=== PATIENT | female | born 2000 | race Caucasian/White ===

== ENCOUNTER 2023-04-06 16:25 | Emergency (ER) | payer MEDICAID, SELFPAY ==
[2023-04-06 16:29] VITALS: PULSE 98; RESP 18; TEMP 36.9; O2SAT 100; BMI 35.5
--- NOTE | 2023-04-06 16:56 | ED.GENADUL1 ---
HPI - General Adult General Chief complaint: Dizziness Stated complaint: HEAD PRESSURE, DIZZINESS Time Seen by Provider: 04/06/23 16:38 Source: patient Mode of arrival: walk-in Limitations: no limitations History of Present Illness HPI narrative: this patient's here complaining of dizziness and nausea today. She also has headache. She suffers from migraines for a long time but should this headache feels different. It was not abrupt in onset. Symptoms began yesterday. She felt fine until she went and took a shower after she was showering she wanted to bend over and shave her legs. When she shaved her legs and then stood up she had an abrupt onset of dizziness. She describes that sensation as feeling like everything was spinning and whirling around. Thereafter the headache slowly started just as gotten worse. She is supposed to work today but can't go to work feeling like this. She drove herself to the hospital. She says she does not have friends neighbors or family members that can drive her home. She lives in [place]. She is on the medications as listed. She's not had any head trauma or injury. She's not had a fever or influenza/viral type symptoms. She says the dizziness is present with both upright and supine positions. She does not have diplopia or dysarthria or dysphagia. No focal motor deficits or weakness or symptomatology in the trunk torso or the extremities. Vital signs are noted here and essentially normal. She was talking on the phone when I entered the room. Related Data Allergies Allergy/AdvReac Type Severity Reaction Status Date / Time No Known Drug Allergies Allergy Verified 04/06/23 16:29 Exam Narrative Exam Narrative: awake alert oriented ?3 cognition mentation and orientation are completely normal. GCS fifteen. In the sitting position neurological examination was conducted. Rapid alternating movements are normal. Finger to nose is normal. Gross motor function is normal. Cranial nerves II-12 are normal. She has no visual field loss. She does have horizontal nystagmus with lateral gaze. Funduscopic examination both eyes shows cup-to-disc and AV ratio normal with no hemorrhages and no papilledema. Neck is soft and supple with no nuchal rigidity. Cerebellar function testing is completely normal.she moves about on the cart with no motor abnormalities. Constitutional Vital Signs, click to edit/add: Last Vital Signs Temp 98.5 F 04/06/23 16:29 Pulse 98 H 04/06/23 16:29 Resp 18 04/06/23 16:29 Pulse Ox 100 04/06/23 16:29 O2 Del Method Room Air 04/06/23 16:29 Course Vital Signs Vital signs: Vital Signs Temperature 98.5 F 04/06/23 16:29 Pulse Rate 98 H 04/06/23 16:29 Respiratory Rate 18 04/06/23 16:29 Pulse Oximetry 100 04/06/23 16:29 Oxygen Delivery Method Room Air 04/06/23 16:29 Temperature 98.5 F 04/06/23 16:29 Pulse Rate 98 H 04/06/23 16:29 Respiratory Rate 18 04/06/23 16:29 Pulse Oximetry 100 04/06/23 16:29 Oxygen Delivery Method Room Air 04/06/23 16:29 Medical Decision Making MDM Narrative Medical decision making narrative: this patient presents with classic onset of vestibular dysfunction and vertigo. She drove herself the hospital and says there is nobody to drive back to [place]. This really will compromise my ability to successfully treat, but there is no real other options. I will use nonnarcotics for her headache type symptoms and then place her on Antivert . Because she has no one here with her, has no local doctor, and lives by herself I want to get his noncontrast CT scan to be sure there is nothing acute. In fact that study was done and appears to be negative per my review. Discharge Plan Discharge Chief Complaint: Dizziness Clinical Impression: Vertigo Patient Disposition: Home, Self-Care Time of Disposition Decision: 17:44 Additional Instructions: Antivert/off work today and tomorrow Toradol for headache [facility] [place] primary care doctor symptoms don't improve in several days Stand Alone Forms: Portal Instructions Referrals: Yair Agee MD [Primary Care Provider] - 1 week
--- NOTE | 2023-04-06 17:03 | CT_ITS ---
The [address] [address] Patient Name: DELMAR SUTTON MRN: [id number] date: 2000 Sex: F Assigned Patient Location: ER Current Patient Location: .[facility] Accession/Order Number: [id number] Exam Date: 04/06/2023 17:27 Report Date: 04/06/2023 17:51 At the request of: TONNY ARROYO Procedure: CT head/brain wo con CT head/brain wo con, 04/06/2023 5:27 PM EST INDICATION: headache/vertigo COMPARISON: There is no appropriate prior study for comparison. TECHNIQUE: Axial CT images of the brain from skull base to vertex, including portions of the face and sinuses, were obtained without contrast . Multiplanar reformatted images were generated and reviewed as needed. Dose reduction techniques were achieved by using automated exposure control and/or adjustment of mA and/or kV according to patient size and/or use of iterative reconstruction technique. FINDINGS: The cerebral sulci as well as ventricular system are appropriate for age. There is no intracranial mass, mass effect, midline shift, intra or extra-axial fluid collection or hemorrhage. There is mucosal thickening within the left frontal, sphenoidal sinuses and left ethmoidal cells. The visualized portions of orbits, mastoid air cells as well as remainder of paranasal sinuses are unremarkable. There is no suspicious osteolytic or osteoblastic lesion. CT/CT head/brain wo con IMPRESSION: No acute intracranial process is noted. Left frontal and sphenoid sinuses and left ethmoidal mucosal thickening of obstructive pattern. Clinical correlation is advised to rule out sinus disease. Electronically authenticated by: JUAN WADE Date: 04/06/2023 17:51
[2023-04-06] MEDS: MECLIZINE HCL 12.5 MG TABLET 50 MG PO (17:15)
[2023-04-06] MEDS: KETOROLAC TROMETHAMINE 30 MG/ML VIAL IM (17:15)
[2023-04-06] MEDS: METOCLOPRAMIDE HCL 10 MG/2 ML VIAL IM (17:16)
== END 2023-04-06 17:54 | disposition home or self-care (01) ==
PROVIDERS: Emergency Provider Emergency Medicine Emergency Medical Services
DX: R42 Dizziness and giddiness (principal)
CPT/HCPCS: 70450; 96372; 99285

== ENCOUNTER 2023-04-07 03:19 | Emergency (ER) | payer MEDICAID, SELFPAY ==
[2023-04-07 03:22] VITALS: BP 158/95; PULSE 98; RESP 18; TEMP 36.8; O2SAT 98; BMI 35.5
--- NOTE | 2023-04-07 03:43 | ED_ITS ---
HPI - General Adult General Chief complaint: Headache Stated complaint: headache Time Seen by Provider: 04/07/23 03:41 Source: patient Mode of arrival: walk-in Limitations: no limitations History of Present Illness HPI narrative: migraine headache for 2 days. 1-2 migraine headache per year in same distribution. Usually resolve with Excedrin but not this time. has nausea but no vomiting or fever. No paresthesia or neck pain. Onset (ago): day(s) Related Data Home Medications Medication Instructions Recorded Confirmed metformin 500 mg tablet mg 04/07/23 paroxetine HCl 10 mg tablet mg PO 04/07/23 Allergies Allergy/AdvReac Type Severity Reaction Status Date / Time No Known Drug Allergies Allergy Verified 04/07/23 03:24 Review of Systems ROS Status of ROS 10 or more systems reviewed and unremarkable except as noted in history and below PFSH [facility] Social History Smoking status: Never smoker Exam Constitutional Vital Signs, click to edit/add: Last Vital Signs Temp 98.3 F 04/07/23 03:22 Pulse 98 H 04/07/23 03:22 Resp 18 04/07/23 03:22 BP 158/95 H 04/07/23 03:22 Pulse Ox 98 04/07/23 03:22 O2 Del Method Room Air 04/07/23 03:22 Common normals: average body habitus and oriented x3 General appearance: in distress (mild . photosensitive ) Eye Common normals: PERRL and EOMs intact bilaterally Respiratory Common normals: normal respiratory effort, no retractions, no use of accessory muscles and clear to auscultation bilaterally Cardio Common normals: regular rate, regular rhythm, S1 normal heart sound and S2 nor mal heart sound GI Common normals: Normal to inspection, nondistended, normoactive bowel sounds present, soft to palpation and non-tender Extremity Common normals: normal to inspection and full ROM Neuro Common normals: oriented x3, CN's II-XII intact bilaterally, moves all extremities and no focal motor deficits Psych Appearance: grossly normal Course Vital Signs Vital signs: Vital Signs Temperature 98.3 F 04/07/23 03:22 Pulse Rate 98 H 04/07/23 03:22 Respiratory Rate 18 04/07/23 03:22 Blood Pressure 158/95 H 04/07/23 03:22 Pulse Oximetry 98 04/07/23 03:22 Oxygen Delivery Method Room Air 04/07/23 03:22 Temperature 98.3 F 04/07/23 03:22 Pulse Rate 98 H 04/07/23 03:22 Respiratory Rate 18 04/07/23 03:22 Blood Pressure 158/95 H 04/07/23 03:22 Pulse Oximetry 98 04/07/23 03:22 Oxygen Delivery Method Room Air 04/07/23 03:22 Medical Decision Making MDM Narrative Medical decision making narrative: past history of migraine headaches. At least 1-2 times per year. Headache for 2 days. Same distribution as her migraine and associated with nausea but not responding to Excedrin which usually works. No fever or neck stiffness. No dizziness or paresthesia. CBC and BMP WNL. Treated in the department and within a couple of hours the headache was much better and she was ready to go home Lab Data Labs: Lab Results 04/07/23 Range/Units 03:25 WBC 9.7 (4.0-11.0) 10^3/uL RBC 4.80 (4.20-5.40) 10^6/uL Hgb 12.5 (12.0-16.0) g/dL Hct 40.1 (36.0-48.0) % MCV 83.5 (81.0-99.0) fL MCH 26.0 L (26.7-34.0) pg MCHC 31.2 (29.9-35.2) g/dL RDW 13.7 (11.0-15.0) % Plt Count 317 (150-450) 10^3/uL MPV 8.8 L (9.5-13.5) fL Neut % (Auto) 74.2 (43.0-75.0) % Lymph % (Auto) 17.2 L (20.5-60.0) % [place] % (Auto) 6.1 (1.7-12.0) % Eos % (Auto) 1.7 (0.9-7.0) % Baso % (Auto) 0.4 (0.2-2.0) % Neut # (Auto) 7.2 H (1.4-6.5) 10^3/uL Lymph # (Auto) 1.7 (1.2-3.8) 10^3/uL [place] # (Auto) 0.6 (0.3-0.8) 10^3/uL Eos # (Auto) 0.2 (0.0-0.7) 10^3/uL Baso # (Auto) 0.0 (0.0-0.1) 10^3/uL Abs Immat Gran (auto) 0.04 H (0.00-0.03) 10^3/uL Imm/Tot Granulo (auto) 0.4 (0.0-0.5) % Sodium 137 (136-145) mmol/L Potassium 3.9 (3.5-5.1) mmol/L Chloride 103 (98-107) mmol/L Carbon Dioxide 25.5 (21.0-32.0) mmol/L Anion Gap 12.4 BUN 8.0 (7.0-18.0) mg/dL Creatinine 0.76 (0.55-1.02) mg/dL Est GFR ( Amer) >60 (>=60) Est GFR (Non-Af Amer) >60 (>=60) BUN/Creatinine Ratio 10.5 Glucose 116 H (74-106) mg/dL Calcium 8.7 (8.5-10.1) mg/dL Discharge Plan Discharge Chief Complaint: Headache Clinical Impression: Migraine Patient Disposition: Home, Self-Care Prescriptions / Home Meds: No Action metformin 500 mg tablet paroxetine HCl 10 mg tablet PO Instructions: Migraine Headache (ED) Stand Alone Forms: Portal Instructions Referrals: Physician,Non-Staff, MD [Primary Care Provider] - 1 week Discharge Date/Time: 04/07/23 05:38
[2023-04-07 03:56] LABS: Basophils Percent Auto 0.4 % (0.2-2.0); Eosinophils Absolute Auto 0.2 10^3/uL (0.0-0.7); Eosinophils Percent Auto 1.7 % (0.9-7.0); Hematocrit 40.1 % (36.0-48.0); Hemoglobin 12.5 g/dL (12.0-16.0); Immature Granulocytes Abs Auto 0.04 10^3/uL (0.00-0.03); Immature Granulocytes Pct Auto 0.4 % (0.0-0.5); Lymphocytes Absolute Auto 1.7 10^3/uL (1.2-3.8); Lymphocytes Percent Auto 17.2 % (20.5-60.0); Mean Corpuscular HGB Conc 31.2 g/dL (29.9-35.2); Mean Corpuscular Volume 83.5 fL (81.0-99.0); Mean Platelet Volume 8.8 fL (9.5-13.5); Monocytes Absolute Auto 0.6 10^3/uL (0.3-0.8); Monocytes Percent Auto 6.1 % (1.7-12.0); Neutrophils Absolute Auto 7.2 10^3/uL (1.4-6.5); Neutrophils Percent Auto 74.2 % (43.0-75.0); Platelet Count 317 10^3/uL (150-450); Red Cell Distribution Width 13.7 % (11.0-15.0); White Blood Count 9.7 10^3/uL (4.0-11.0)
[2023-04-07 04:01] LABS: Anion Gap 12.4; BUN Creatinine Ratio 10.5; Calcium 8.7 mg/dL (8.5-10.1); Carbon Dioxide 25.5 mmol/L (21.0-32.0); Chloride 103 mmol/L (98-107); Estimated GFR (African America >60 (>=60); Estimated GFR (Non-African Ame >60 (>=60); Glucose 116 mg/dL (74-106); Potassium 3.9 mmol/L (3.5-5.1); Sodium 137 mmol/L (136-145)
[2023-04-07] MEDS: DIPHENHYDRAMINE HCL 50 MG/ML (1ML) VIAL IV (04:07)
[2023-04-07] MEDS: METOCLOPRAMIDE HCL 10 MG/2 ML VIAL IVP (04:07)
[2023-04-07] MEDS: METHYLPREDNISOLONE SOD SUCC PF 125 MG/2 ML VIAL IVP (04:08)
== END 2023-04-07 05:38 | disposition home or self-care (01) ==
PROVIDERS: Emergency Provider Internal Medicine
DX: G43.909 Migraine, unspecified, not intractable, without status migrainosus (principal); Z79.84 Long term (current) use of oral hypoglycemic drugs; Z79.899 Other long term (current) drug therapy
CPT/HCPCS: 36415; 80048; 85025; 96374; 96375; 99284; J2930